=== PATIENT | female | born 1965 | race Caucasian/White ===

== ENCOUNTER 2018-08-22 18:40 | Emergency (ER) | payer OTHER ==
[~2018-08-22] VITALS: Ht 162.6 cm; Wt 59.4 kg
[2018-08-22 19:11] VITALS: Ht 162.6 cm; Wt 59.4 kg
[2018-08-22 21:24] VITALS: BP 113/84
== END 2018-08-22 21:24 | disposition home or self-care (01) ==
LOC: ED 18:40
DX: M54.5 Low back pain (principal); M54.6 Pain in thoracic spine